=== PATIENT | female | born 1950 | race Caucasian/White ===

== ENCOUNTER 2018-06-28 07:50 | Day surgery (SDC) | payer OTHER, MEDICARE ==
[~2018-06-28] VITALS: Ht 165.1 cm; Wt 90.7 kg
[2018-06-28 08:53] VITALS: BP 128/73
[2018-06-28 12:40] VITALS: BP 100/60
== END 2018-06-28 12:20 | disposition home or self-care (01) ==
LOC: DS 07:50 → GI 09:30 → OR 09:30 → DS 12:20
PROVIDERS: Internal Medicine
PROC: 0DJD8ZZ Inspection of Lower Intestinal Tract, Via Natural or Artificial Opening Endoscopic (ICD-10-PCS; 2018-06-28)
PROC: 0DB48ZX Excision of Esophagogastric Junction, Via Natural or Artificial Opening Endoscopic, Diagnostic (ICD-10-PCS; principal; 2018-06-28 09:30)
PROC: 0DB68ZX Excision of Stomach, Via Natural or Artificial Opening Endoscopic, Diagnostic (ICD-10-PCS; 2018-06-28 09:30)
DX: K20.8 Other esophagitis (principal); K29.50 Unspecified chronic gastritis without bleeding; K44.9 Diaphragmatic hernia without obstruction or gangrene; K31.7 Polyp of stomach and duodenum; K57.30 Diverticulosis of large intestine without perforation or abscess without bleeding; E11.9 Type 2 diabetes mellitus without complications; E03.9 Hypothyroidism, unspecified; E78.5 Hyperlipidemia, unspecified; E66.9 Obesity, unspecified; Z68.33 Body mass index [BMI] 33.0-33.9, adult; Z79.84 Long term (current) use of oral hypoglycemic drugs; Z12.11 Encounter for screening for malignant neoplasm of colon; Z86.010 Personal history of colon polyps
CPT/HCPCS: 43239; 45378; G0105; 43235; 82962; G0500; J1200; J1610; J2250; J2310; J3010; J3490

== ENCOUNTER 2018-08-18 22:55 | Emergency (ER) | payer OTHER ==
[~2018-08-18] VITALS: Ht 165.1 cm; Wt 94.8 kg
[2018-08-18 23:07] VITALS: Ht 165.1 cm; Wt 94.8 kg
[2018-08-18 23:35] LABS: BASOPHIL % 0.2 % (0-2); PLATELET COUNT 196 x10^3mcL (130-400); RED CELL DISTRIBUTION WIDTH 12.9 % (11.5-14.5)
[2018-08-18 23:47] LABS: CALCIUM 8.5 mg/dL (8.5-10.1); CARBON DIOXIDE 28.4 mmol/L (21-32); CHLORIDE SERUM 104 mmol/L (98-107); CREATININE SERUM 0.8 mg/dL (0.6-1.0); GFR1 > 60 mL/min; GLUCOSE SERUM 167 mg/dL (74-106); POTASSIUM SERUM 3.6 mmol/L (3.5-5.1); SODIUM SERUM 140 mmol/L (136-145)
[2018-08-18 23:51] LABS: ALBUMIN 3.7 g/dL (3.4-5.0); ALKALINE PHOSPHATASE 162 U/L (46-116); ALT/SGPT 119 U/L (14-59); AST/SGOT 117 U/L (15-37); BILIRUBIN TOTAL 0.2 mg/dL (0.20-1.00); LIPASE 193 IU/L (73-393); TOTAL PROTEIN, SERUM 7.2 g/dL (6.4-8.2)
[2018-08-19 01:03] VITALS: BP 127/69
== END 2018-08-19 01:03 | disposition home or self-care (01) ==
LOC: ED 22:55
PROVIDERS: Emergency Medicine
DX: R07.89 Other chest pain (principal); R10.13 Epigastric pain; R11.2 Nausea with vomiting, unspecified; E11.9 Type 2 diabetes mellitus without complications; E03.9 Hypothyroidism, unspecified; Z98.890 Other specified postprocedural states
CPT/HCPCS: 36415; 83880; Q0092

== ENCOUNTER 2018-12-07 09:09 | Day surgery (SDC) | payer OTHER ==
[2018-12-05 12:03] LABS: CALCIUM 8.5 mg/dL (8.5-10.1); CARBON DIOXIDE 31.2 mmol/L (21-32); CHLORIDE SERUM 104 mmol/L (98-107); CREATININE SERUM 0.7 mg/dL (0.6-1.0); GFR1 > 60 mL/min; GLUCOSE SERUM 108 mg/dL (74-106); SODIUM SERUM 140 mmol/L (136-145)
[2018-12-05 12:09] LABS: BASOPHIL % 0.3 % (0-2); PLATELET COUNT 188 x10^3mcL (130-400); RED CELL DISTRIBUTION WIDTH 13.1 % (11.5-14.5)
[~2018-12-07] VITALS: Ht 165.1 cm; Wt 92.1 kg
[2018-12-07 09:44] VITALS: BP 141/66
[2018-12-07 16:14] VITALS: BP 120/54
== END 2018-12-07 16:00 | disposition home or self-care (01) ==
LOC: DS 09:09 → OR 11:00 → DS 11:00
PROVIDERS: Surgery
DX: K80.10 Calculus of gallbladder with chronic cholecystitis without obstruction (principal); M79.89 Other specified soft tissue disorders; E66.9 Obesity, unspecified; K21.9 Gastro-esophageal reflux disease without esophagitis; E03.9 Hypothyroidism, unspecified; E11.9 Type 2 diabetes mellitus without complications; J45.909 Unspecified asthma, uncomplicated; L85.8 Other specified epidermal thickening; M17.11 Unilateral primary osteoarthritis, right knee; Z79.84 Long term (current) use of oral hypoglycemic drugs; Z79.899 Other long term (current) drug therapy; Z90.710 Acquired absence of both cervix and uterus; Z98.890 Other specified postprocedural states
CPT/HCPCS: 82962; J0330; J0694; J1170; J2405; J2704; J2710; J3010; J3490; J7030

== ENCOUNTER 2018-12-29 13:03 | Emergency (ER) | payer OTHER ==
[~2018-12-29] VITALS: Ht 160 cm; Wt 92.5 kg
[2018-12-29 13:10] VITALS: Ht 160 cm; Wt 92.5 kg
[2018-12-29 16:11] VITALS: BP 158/88
== END 2018-12-29 16:11 | disposition home or self-care (01) ==
LOC: ED 13:03
DX: S52.571A Other intraarticular fracture of lower end of right radius, initial encounter for closed fracture (principal); E11.9 Type 2 diabetes mellitus without complications; E03.9 Hypothyroidism, unspecified; Z90.49 Acquired absence of other specified parts of digestive tract; W07.XXXA Fall from chair, initial encounter; Y93.89 Activity, other specified; Y92.89 Other specified places as the place of occurrence of the external cause; Y99.8 Other external cause status